=== PATIENT | female | born 1975 | race African-American/Black ===

== ENCOUNTER → 2017-05-07 | Outpatient (CLI) | payer BC ==
--- NOTE | 2017-05-07 15:44 | RADIOLOGY REPORT (SQ) ---
EXAM DESCRIPTION: U/S NON-OB PELVIS W/O DOP; U/S NON-OB PELVIS TV W/O DOP COMPLETED DATE/TIME: 05/07/2017 3:28 pm REASON FOR STUDY: LEIOMYOMA OF UTERUS, UNSPECIFIED D25.9 LEIOMYOMA OF UTERUS, UNSPECIFIED N94.89 O TH [facility] W FEMALE GENITAL ORGANS AND MENSTRUAL COMPARISON: None. TECHNIQUE: Dynamic and static grayscale images acquired of the pelvis via transabdominal and transva ginal approach and recorded on PACS. Additional selected color Doppler and spectral images recorded. LIMITATIONS: None. FINDINGS: UTERUS: Contour normal. Dorsal fundal fibroid, 3.4 cm in greatest diameter. Overall, the uterus is 9 x 6 x 5 cm in size. ENDOMETRIAL STRIPE: No focal or generalized thickening. No masses. Endometrium is 9 mm in thickness. CERVIX: No nabothian cysts. RIGHT OVARY: No abnormal masses. Right ovary is 2.4 x 1.7 x 1.6 cm in size. RIGHT OVARY DOPPLER: Normal arterial vascular flow without evidence for torsion. LEFT OVARY: Not visualized on either transabdominal or endovaginal scanning LEFT OVARY DOPPLER: Not applicable FREE FLUID: None noted. OTHER: No other significant finding. IMPRESSION: Small dorsal uterine fundal fibroid 3.4 cm in diameter. Nonvisualization left ovary Otherwise unremarkable study TECHNICAL DOCUMENTATION: JOB ID: [id number] All Rights Reserved
== END ==
LOC: RAD 14:40
PROVIDERS: ATTEND Physician Assistant
DX: D25.9 Leiomyoma of uterus, unspecified (principal); N94.89 Other specified conditions associated with female genital organs and menstrual cycle
CPT/HCPCS: 76830; 76856